=== PATIENT | male | born 1935 | race Caucasian/White ===

== ENCOUNTER → 2017-05-31 13:15 | Outpatient (CLI) | payer MEDICARE, SELFPAY ==
--- NOTE | 2017-05-31 13:18 | MRI_ITS ---
STUDY: MRI ABDOMEN WITH AND WITHOUT CONTRAST REASON FOR EXAM: Male, 82 years old. abnormal liver u/s; liver lesion characterization; pt c/o abd pain,diarrhea TECHNIQUE: Standardized fat and water weighted pulse sequences were obtained in all 3 orthogonal planes post contrast administration. 7 ml of Gadavist contrast material was administered intravenously for the contrast portion of the examination. COMPARISON: US 4 NO REPORT. IMAGES ONLY. FINDINGS: The visualized lung bases are unremarkable. The visualized portions of the heart are within normal limits. Multiple median sternotomy wires are noted consistent for cardiac surgery. There are multiple masses in the liver. The largest lesion is in the right lobe measuring 68mm. There is peripheral rim enhancement of the lesions. There is non-visualization of the gallbladder, which may be secondary to either contraction or a prior cholecystectomy. Normal spleen. Normal pancreas. Normal bilateral adrenal glands. Normal right kidney. Normal left kidney. Normal visualized stomach. Normal small intestine. Normal colon. The appendix is visualized and appears normal. Normal abdominal aorta. Normal inferior vena cava. Normal retroperitoneum. Normal abdominal wall. There are diffuse degenerative changes of the visualized lumbar spine. MRI/MRI Abd WITH and W/O Contrast IMPRESSION: There are multiple lesions noted in the liver which are likely related to metastatic disease. Findings are consistent with the findings on the prior ultrasound Electronically Signed: Shamar Davila MD at 16:49 EDT , Service support ,
== END ==
PROVIDERS: Family Provider Family Medicine; PCP Family Medicine; Visit Provider Family Medicine
DX: R93.2 Abnormal findings on diagnostic imaging of liver and biliary tract (principal)
CPT/HCPCS: 74183; A9585

== ENCOUNTER 2017-07-05 22:09 | Emergency (ER) | payer MEDICARE, SELFPAY ==
[2017-07-05 22:10] VITALS: BP 97/52; PULSE 78; RESP 16; TEMP 36.7; O2SAT 93; BMI 20.9
[2017-07-05] MEDS: Ondansetron 4 MG/2 ML Vial IV (22:51)
[2017-07-05] MEDS: 0.9% Normal Saline 1,000 ML 1000 ML IV (22:51)
[2017-07-05] MEDS: morphine 8 MG/ML Syringe 6 MG IV (23:44)
--- NOTE | 2017-07-05 23:53 | NURSING ---
THIS NURSE ALONG WITH MISHA, ACCOUNTANT [employer] ATTEMPTED TO GET A REDRAW ON THE PATIENT AND WE WERE UNSUCCESSFUL. DR. AMBROSIO MADE AWARE AND STATED WE COULD DISCONTINUE THE ORDER D/T PATIENT'S DISCOMFORT AND TERMINAL DIAGNOSIS.
--- NOTE | 2017-07-05 23:58 | ED.DCSUM_ITS ---
- ER Visit Summary Date of Service: 07/05/17 Chief Complaint: Loss of appetite nausea and abdominal pain History of Present Illness: The patient is a 82 M who was diagnosed 3 weeks ago with advanced pancreatic cancer. He was given a life expectancy of 1 month without chemo 2-3 months with chemo. He received a second dose of chemo on Wednesday. He has had problems with nausea and decreased appetite since dose of chemo. He does complain of dry mouth. He has no other complaints. Past medical history diabetes, hypertension, hypercholesterolemia and recent diagnosis of pancreatic cancer Physical Examination: Blood pressure is 97/52. Vital signs otherwise unremarkable. He is jaundiced. Sclerae icteric. Conjunctivae is normal. Pupils equal reactive. Mucosa is dry. Heart is regular without murmur, gallop or rub. Lungs are clear auscultation. Abdomen is mildly tender, which patient states is normal. His neuro exam is nonfocal. Test Results: The lab states all of the specimens we have sent are unacceptable. Since patient has a terminal condition it is my opinion that he does not need to have blood drawn for the fourth time. Emergency Department Course and Treatment: Zofran 4 mg IV push, morphine 6 mg IV push. He received 1 L with no urine output. He will receive a second liter. Disposition to be made/discharge after he urinates. Treatment Plan: Patient and outpatient follow-up with Dr. De La Garza Disposition: To be discharge once patient is adequately hydrated Impression: Abdominal pain with nausea and lack of appetite secondary to advanced pancreatic cancer Moderate dehydration History of type 2 diabetes This note was generated with [employer] dictation software. It may contain incorrect words, spelling, and punctuation that were not noted in review of the chart prior to signing ED Disposition - Plan for ED Patient: Disposition: Home or Assisted Living Chief Complaint: Nausea/Vomiting Instructions: ED Nausea Vomiting, What Is Pancreatic Cancer? Referrals: Austyn Wilehlm III, MD [Primary Care Provider] - Lio De La Garza MD [STAFF PHYSICIAN] - Keep [facility] appointment
[2017-07-06] MEDS: 0.9% Normal Saline 1,000 ML 1000 ML IV
[2017-07-06 00:35] VITALS: BP 131/63; PULSE 65; RESP 14; O2SAT 97
[2017-07-06] MEDS: morphine 8 MG/ML Syringe 6 MG IV (00:50)
--- NOTE | 2017-07-06 02:18 | NURSING ---
PATIENT C/O ITCHING ALL OVER ABDOMEN AND LEGS, ARMS. SOME SMALL RED BUMPS LOCATED ON ARMS AND ABDOMEN. DR. FOUNTAIN MADE AWARE AND ORDERED BENEDRYL 12.5 MG VERBAL ORDER.
[2017-07-06] MEDS: DiphenhydrAMINE 50 MG/ML Syringe 12.5 MG IV (02:21)
--- NOTE | 2017-07-06 02:30 | NURSING ---
FAMILY FEELS COMFORTABLE TAKING PATIENT HOME. DR. FOUNTAIN IS AWARE AND AGREES.
[2017-07-06 02:31] VITALS: BP 128/56; PULSE 72; RESP 21; O2SAT 96
== END 2017-07-06 02:31 | disposition home or self-care (01) ==
PROVIDERS: Emergency Provider Emergency Medicine; Family Provider Family Medicine; PCP Family Medicine
DX: R10.9 Unspecified abdominal pain (principal); R11.0 Nausea; E86.0 Dehydration; R63.0 Anorexia; C25.9 Malignant neoplasm of pancreas, unspecified; E11.9 Type 2 diabetes mellitus without complications; I10 Essential (primary) hypertension; E78.00 Pure hypercholesterolemia, unspecified; Z87.891 Personal history of nicotine dependence; Z79.4 Long term (current) use of insulin; Z79.891 Long term (current) use of opiate analgesic; Z79.899 Other long term (current) drug therapy
CPT/HCPCS: 96361; 96374; 96375; 96376; 99284; J7030; J2405